=== PATIENT | male | born 1955 ===

== ENCOUNTER 2018-04-20 11:49 | Outpatient (CLI) | payer OTHER, SELFPAY ==
[2018-04-20 13:20] LABS: HCT 43.2 % (40.0-50.0); HGB 14.8 g/dL (13.5-17.5); Mean Corp. HGB Concentration 34.3 g/dL (32.0-36.0); Mean Corpuscular Hemoglobin 31.6 pg (27.0-33.0); Mean Corpuscular Volume 92.1 fL (80-95); Mean Platelet Volume 10.2 fL (8.0-11.0); Platelet Count 213 x1000/uL (130-400); RBC 4.69 m/cumm (4.50-6.00); RBC Distribution Width 12.7 % (11.8-14.1); White Blood Cell Count 8.28 k/cumm (4.4-10.8)
[2018-04-20 13:46] LABS: ALT 54 U/L (12-78); AST 39 U/L (15-37); Albumin 3.2 g/dL (3.4-5.0); Alkaline Phosphatase 86 U/L (46-116); Anion Gap 7.9 mmol/L (3-11); BUN 19 mg/dL (7-18); Bilirubin, Total 1.3 mg/dL (0.2-1.0); CO2 30.1 mmol/L (21.0-32.0); CREATININE 1.25 mg/dL (0.70-1.30); Calcium 8.9 mg/dL (8.5-10.1); Chloride 98 mmol/L (98-107); Estimated GFR 57.97 (mL/min/1.73m2); Glucose 100 mg/dL (70-100); Potassium 4.5 mmol/L (3.5-5.1); Sodium 136 mmol/L (136-145); Total Protein 6.8 g/dL (6.4-8.2); Uric Acid 5.1 mg/dL (3.5-7.2)
[2018-04-20 14:31] LABS: ESR 56 MM/HR (1-20)
[2018-04-23 09:56] LABS: Rheumatoid Factor 15 IU/mL (<12.5)
== END 2018-04-20 12:09 ==
PROVIDERS: PCP Emergency Medicine; Visit Provider Emergency Medicine
DX: M13.0 Polyarthritis, unspecified (principal); M25.50 Pain in unspecified joint; M10.9 Gout, unspecified
CPT/HCPCS: 36415; 80053; 85027; 85652; 84550; 86431

== ENCOUNTER 2018-04-27 15:11 | Outpatient (CLI) | payer OTHER, SELFPAY ==
[2018-04-27 16:25] LABS: ESR 18 MM/HR (1-20)
[2018-04-30 09:41] LABS: Cyclic Citrullinated Peptide <2.5 U/mL (<5.0)
[2018-04-30 09:46] LABS: Rheumatoid Factor 12 IU/mL (<12.5)
[2018-04-30 12:44] LABS: Lyme Ab w Rflx to Lyme Confirm Negative
== END 2018-04-27 15:31 ==
PROVIDERS: PCP Emergency Medicine; Visit Provider Emergency Medicine
DX: M13.0 Polyarthritis, unspecified (principal); M25.50 Pain in unspecified joint
CPT/HCPCS: 36415; 85652; 86200; 86431; 86618

== ENCOUNTER 2018-05-16 12:39 | Outpatient (CLI) | payer OTHER, SELFPAY ==
[2018-05-18 11:40] LABS: Rheumatoid Factor 12 IU/mL (<12.5)
[2018-05-18 12:09] LABS: Hepatitis A Antibody IgM Negative (NEGAT); Hepatitis B Core Antibody Negative (NEGAT); Hepatitis B surface Ag Negative (NEGAT); Hepatitis C Ab w Rflx HCV PCR Negative (NEGAT)
[2018-05-18 13:27] LABS: ANA Interpretation Negative (NEGAT)
[2018-05-18 19:39] LABS: Parvovirus B19 Ab, IgG Negative (Negative); Parvovirus B19 Ab, IgM Positive (Negative)
== END 2018-05-16 12:59 ==
PROVIDERS: PCP Emergency Medicine; Visit Provider Emergency Medicine
DX: M13.0 Polyarthritis, unspecified (principal); M25.50 Pain in unspecified joint
CPT/HCPCS: 36415; 86704; 86709; 86803; 87340; 86038; 86140; 86431; 86747

== ENCOUNTER 2019-01-18 14:49 | Outpatient (CLI) | payer OTHER, SELFPAY ==
[2019-01-18 16:44] LABS: Calculated LDL 119 mg/dL; Cholesterol 202 mg/dL (<200); HDL Cholesterol 38 mg/dL (40-60); Triglyceride 226 mg/dL (<150)
[2019-01-21 13:07] LABS: PSA, Screening 0.7 ng/mL (0.0-4.5)
== END 2019-01-18 15:09 ==
PROVIDERS: PCP Emergency Medicine; Visit Provider Emergency Medicine
DX: Z00.00 Encounter for general adult medical examination without abnormal findings (principal); Z13.220 Encounter for screening for lipoid disorders; Z12.5 Encounter for screening for malignant neoplasm of prostate
CPT/HCPCS: 36415; 80061; 84153